=== PATIENT | male | born 1975 | race Caucasian/White ===

== ENCOUNTER 2018-05-29 07:07 | Day surgery (SDC) | payer BC ==
[~2018-05-29 07:07] MED LIST: DIPHENHYDRAMINE 50 MG CAP PO; SOD CHLORIDE 0.45% 1,000 ML IV
[2018-05-29 08:02] LABS: ADD MAN DIFF? NO
[2018-05-29 08:03] LABS: WHITE BLOOD COUNT 4.3 10^3/ul (4.8-10.8)
[2018-05-29 08:03] LABS: BASOPHILS % 0.9 % (0.0-2.0); EOSINOPHILS # 0.2 10^3/ul (0.0-0.5); EOSINOPHILS % 3.9 % (0.0-7.0); HEMATOCRIT 45.3 % (42.0-52.0); HEMOGLOBIN 15.2 g/dl (14.0-18.0); LYMPHOCYTES # 1.2 10^3/ul (0.8-2.9); LYMPHOCYTES % 27.3 % (15.0-51.0); MEAN CORPUSCULAR HEMOGLOBIN 27.9 pg (29.0-33.0); MEAN CORPUSCULAR HGB CONC 33.6 g/dl (32.0-37.0); MEAN CORPUSCULAR VOLUME 83.3 fl (82.0-101.0); MEAN PLATELET VOLUME 9.9 fl (7.4-10.4); MONOCYTE # 0.6 10^3/ul (0.3-0.9); MONOCYTES % 13.9 % (0.0-11.0); NEUTROPHIL # 2.3 10^3/ul (1.6-7.5); NEUTROPHILS % 53.5 % (39.0-77.0); PLATELET COUNT 222 10^3/UL (140-415); RED BLOOD COUNT 5.44 10^6/ul (4.70-6.10)
[2018-05-29 08:08] LABS: HOLD TRANSMISSIONS 1
[2018-05-29 08:32] LABS: ANION GAP 8 (5-13); BLOOD UREA NITROGEN 10 mg/dl (7-20); CALCIUM 9.2 mg/dl (8.4-10.2); CARBON DIOXIDE 27 mmol/L (21-31); CHLORIDE 106 mmol/L (97-110); CHOL/HDL RATIO 4.3 RATIO; CHOLESTEROL 147 mg/dl (100-200); CREATININE 1.01 mg/dl (0.61-1.24); Estimated GFR > 60 mL/min (>60); GLUCOSE 112 mg/dl (70-220); HDL CHOLESTEROL 34 mg/dl (27-67); LDL CHOLESTEROL,CALCULATED 92 mg/dl; SODIUM 141 mmol/L (135-144); TRIGLYCERIDES 104 mg/dl (0-149)
[2018-05-29 08:43] LABS: INR 0.89; PROTIME 12.2 Sec (11.9-14.9)
[2018-05-29 08:47] LABS: PARTIAL THROMBOPLASTIN TIME 24.4 Sec (23.0-35.0)
[2018-05-29] MEDS: FAMOTIDINE 20 MG TAB PO (08:54)
[2018-05-29] MEDS: DIAZEPAM 5 MG TAB PO (08:54)
[2018-05-29] MEDS ORDERED: NITROGLYCERIN (IC) 100 MCG/ML INJ (09:11)
[2018-05-29] MEDS ORDERED: VERAPAMIL 5 MG INJ (09:11)
[2018-05-29] MEDS ORDERED: HEPARIN 1000 UNITS/ML 10 ML INJ (09:11)
[2018-05-29] MEDS ORDERED: FENTAnyl 50 MCG/ML VIAL (09:11)
[2018-05-29] MEDS ORDERED: MIDAZOLAM 1 MG/ML 2 ML INJ (09:11)
[2018-05-29] MEDS: SOD CHLORIDE 0.9% 1,000 ML IV (10:31)
[2018-05-29] MEDS ORDERED: morphine 2 MG INJ IV (11:00)
[2018-05-29] MEDS ORDERED: ACETAMINOPHEN 325 MG TAB PO (11:00)
== END 2018-05-29 15:56 | disposition home or self-care (01) ==
LOC: SDS 07:07
DX: I25.10 Atherosclerotic heart disease of native coronary artery without angina pectoris (principal); I10 Essential (primary) hypertension; Z79.82 Long term (current) use of aspirin; Z87.891 Personal history of nicotine dependence; E78.5 Hyperlipidemia, unspecified; I25.2 Old myocardial infarction
CPT/HCPCS: 71045; 80048; 80061; 85025; 85610; 85730; 93005; 93458